=== PATIENT | male | born 1950 | race Caucasian/White ===

== ENCOUNTER 2016-12-28 16:36 | Emergency (ER) | payer MEDICARE ==
[~2016-12-28] VITALS: Ht 167.6 cm; Wt 72.2 kg
[2016-12-28 16:39] VITALS: Ht 167.6 cm; Wt 72.2 kg
--- NOTE | 2016-12-28 16:46 | NUR ---
PROVIDER DR LLAMAS TO BEDSIDE
--- NOTE | 2016-12-28 16:54 | ERPDOC ---
Departure Disposition Decision Date: December 28, 2016 Disposition Decision Time: 18:38 Disposition: 01 DISCHARGED HOME, SELF-CARE Impression Impression Impression: Primary Impression: Diverticulitis Severity: Moderate Condition: Stable Seen By: Physician only Referrals: STEVE GLASS MD (PCP) Patient Instructions: Diverticulitis (ED) Problems/Meds/Labs Reviewed?: Yes Medications reviewed and manag: Yes Additional Instructions: Flagyl 500 mg 3 times daily, Cipro 500 mg twice daily. Clear liquid for 2 days, then advance as tolerated. Please see your primary care provider next week. May use Percocet for pain. Follow up care ordered?: Yes Mental Status: Alert Scripts Oxycodone HCl/Acetaminophen (Percocet 5-325 mg Tablet) 5-325 Tablet 1 TAB PO QID for PAIN, #15 TAB Take 1 tablet, by mouth, 4 times a day. Prov: BERT LLAMAS MD 12/28/16 Ciprofloxacin HCl (Cipro) 500 Mg Tablet 500 MG PO Q12HR, #28 TAB Prov: BERT LLAMAS MD 12/28/16 Metronidazole (Metronidazole) 500 Mg Tablet 500 MG PO Q6HR, #60 TAB Prov: BERT LLAMAS MD 12/28/16 HPI - Abdominal Pain General Chief Complaint: Abdominal Pain Stated Complaint: RT LOWER ABD PAIN Time Seen by Provider: 16:51 HPI - Abdominal Pain Initial Comments 66-year-old gentleman presents with right lower quadrant abdominal pain. He does still has appendix. He's had no fevers or chills, did have normal bowel movement this morning. He has not eaten much last couple days because his pain is worse when he eats. He has not been a more gassy than usual. He has a very mild headache. Has not urinated today Allergies: Coded Allergies: No Known Allergies (Unverified , 12/28/16) Past History Patient Surgical History Hernia repair Past Medical History Pt denies signifigant PMH Surgical History Surgical History Comments Hernia repair Family History Family PMH: FOUND: hypertension Vaccines Hx Influenza Vaccination: No (REFUSED) Hx Pneumococcal Vaccination: No (REFUSED) Social History Smoking Status: Never smoker Substance Use Type: does not use Record Review Pertinent history updated: Yes Review of Systems GI Upper Abdomen: see HPI Lower Abdomen: see HPI Musculoskeletal General: see HPI Physical Exam General General Nourishment: well nourished, well developed, appears stated age Distress Description Patient is lying fairly still, does not want to move. General Body Habitus: well groomed Vitals and Pain First Documented Vital Signs Date Time Temp Pulse Resp B/P Pulse Ox O2 Delivery O2 Flow Rate FiO2 12/28/16 16:39 97.7 68 16 162/76 94 Room Air Weight: Kilograms: 72.200 Height (feet): 5 Height (inches): 6.00 Triage Pain Scale: Normal Exams: Head: Normocephalic w/o trauma Eyes: Pupils are PERRLA w/ EOMI, No scleral icterus, irritation, or foreign bodies noted Chest/Resp: Clear all hall, with good airflow, and symmetry bilaterally CV: Regular rate and rhythm, without murmur or gallop, Pulses 2+ all extremities, capillary refill, <2 seconds all ext., no pedal edema noted Neurologic: Patient is alert, and oriented, cranial nerves, motor/sensory/ cerebellar, exams w/o gross deficits, to observation Psychiatric: Patient exhibits, appropriate attention, emotion and affect Abdomen (brief) Comments Tender to palpation right upper quadrant, and not right lower quadrant as he initially thought. Pain does increase over McBurney's point. No abdominal masses palpable, bowel sounds are hyperactive. Differential Diagnoses Considering: Appendicitis, Biliary Colic, Constipation, Diverticulitis, IBS, Ileus, Neoplasm, Pneumonia, Pyelonephritis, Ulcer, Ulcerative Colitis Progress Results/Orders Orders Procedure Category Date Status Time Iv Lock (Ed Only) EDM 12/28/16 Transmitted 16:56 Nothing By Mouth (Ed EDM 12/28/16 Transmitted Only) 16:56 Cbc W/Auto LAB 12/28/16 Complete Diff-Reflex Manual 16:56 Cmp - Comprehensive LAB 12/28/16 Complete Metabolic 16:56 Lipase LAB 12/28/16 Complete 16:56 Ua, Dip Wreflex LAB 12/28/16 Logged [employer] Installer 16:56 Normal Saline (Normal PHA 12/28/16 Complete Saline Iv) 16:56 Ct Abd/Pelvis CT 12/28/16 Logged W/Contrast Only 16:56 Iohexol (Omnipaque) PHA 12/28/16 Complete 17:41 Normal Saline (Ns) PHA 12/28/16 Complete 17:41 Saline Flush (Iv PHA 12/28/16 Complete Flush) 17:41 Lab Results Laboratory Tests Test 12/28/16 17:16 White Blood Count 8.8T/MM3 Red Blood Count 5.73M/MM3 Hemoglobin 16.1GM/DL Hematocrit 47.2% Mean Corpuscular Volume 82.4UM3 Mean Corpuscular Hemoglobin 28.1UUG Mean Corpuscular Hemoglobin Concent 34.1GM/DL RDW Standard Deviation 39.6FL Platelet Count 162T/MM3 Mean Platelet Volume 9.2UM3 Immature Granulocyte % (Auto) 0.1% Neutrophils (%) (Auto) 69.4% Lymphocytes (%) (Auto) 21.3% Monocytes (%) (Auto) 7.1% Eosinophils (%) (Auto) 2.0% Basophils (%) (Auto) 0.1% Absolute Immature Granulocyte (auto 0.01T/MM3 Absolute Neutrophils (auto) 6.1T/MM3 Absolute Lymphocytes (auto) 1.9T/MM3 Absolute Monocytes (auto) 0.6T/MM3 Absolute Eosinophils (auto) 0.2T/MM3 Absolute Basophils (auto) 0.0T/MM3 Turbidity < 20 Sodium Level 145MEQ/L Potassium Level 4.1MEQ/L Chloride Level 104MEQ/L Carbon Dioxide Level 27MEQ/L Anion Gap 14MEQ/L Blood Urea Nitrogen 18.0MG/DL Creatinine 1.0MG/DL Glomerular Filtration Rate Calc 75 BUN/Creatinine Ratio 18RATIO Glucose Level 95MG/DL Calculated Osmolality 281MOSM/KG Calcium Level 9.4MG/DL Total Bilirubin 0.60MG/DL Icterus Index < 2 Aspartate Amino Transf (AST/SGOT) 26U/L Alanine Aminotransferase (ALT/SGPT) 56U/L Alkaline Phosphatase 84U/L Total Protein 7.4G/DL Albumin 4.2G/DL Globulin 3.2G/DL Albumin/Globulin Ratio 1.3RATIO Lipase 32U/L Chemistry Specimen Hemolysis < 15 Medications Current ED Medications Sodium Chloride (Normal Saline IV) 1,000 ml @ 1,000 mls/hr Q1H ONCE IV Last administered on 12/28/16t 17:14; Start 12/28/16 at 16:56; Stop 12/28/16 at 17:55; Status DC Iohexol 1 bottle 1 bottle Lenda-MED ONCE .ROUTE ; Start 12/28/16 at 17:41; Stop 12/28/16 at 17:42; Status DC Sodium Chloride (NS) 100 ml @ As Directed STK-MED ONCE .ROUTE ; Start 12/28/16 at 17:41; Stop 12/28/16 at 17:42; Status DC Sodium Chloride (Iv Flush) 10 ml STK-MED ONCE .ROUTE ; Start 12/28/16 at 17:41; Stop 12/28/16 at 17:42; Status DC Progress Progress Patient has normal white count, no significant shift, appropriate CMP. CT scan of abdomen shows infected diverticulum and cecum. This certainly accounts for the location and severity of pain. He has no allergies to antibiotics, will start him on Flagyl and Cipro. Recommended he follow up with his primary care provider next week if he is stable or with his surgeon if symptoms are worsening. Recommend clear liquids for the next day or 2 and then very gently advancing diet as tolerated. The patient prescription for Percocet as needed for pain. BERT LLAMAS MD December 28, 2016 16:54
[2016-12-28] MEDS ORDERED: NORMAL SALINE 1,000 ML IV ONE (16:56)
--- OUTSIDE RECORDS SUMMARY | 2016-12-28 16:56 | XMS REPORT | Referral Summary ---
Author Author [facility] Organization [facility] Address Unknown Phone Unavailable Care Team Providers Care Customer Advocate Name Role Phone Susan Hyman Primary Care Physician [phone] Encounter [facility] [id number] Date(s): 04/05/15 - 04/05/15 [facility] [address] [place] [id number] Discharge Diagnosis: Family history of prostate cancer in father Discharge Diagnosis: MVP (mitral valve prolapse) Discharge Diagnosis: Borderline hyperlipidemia Discharge Disposition: 01-Home or Self Care Attending Physician: Mychal Hyman MD Admitting Physician: Mychal Hyman MD Vital Signs Most recent to 1 oldest [Reference Range]: Blood Pressure 128/62 mmHg [90-140/60-90 mmHg] (04/05/15 2:08 PM) Problem List Condition Effective Dates Status Health Status Informant Family history of Active prostate cancer in father(Confirmed) MVP (mitral valve Active prolapse)(Confirmed) Allergies, Adverse Reactions, Alerts No Known Medication Allergies Medications PriLOSEC 20 mg oral delayed release capsule 20 mg 1 caps, Oral, Daily, # 90 caps, 0 Refill(s), Pharmacy: [facility] # [id number], 1 caps Oral Daily Start Date: 08/19/15 Status: Ordered Results No data available for this section Immunizations No data available for this section Procedures Procedure Date Related Diagnosis Body Site Inguinal hernia Social History Social History Type Response Smoking Status Never smoker; Tobacco use per day: More than 1 pack Assessment and Plan Extracted from: Title: Ambulatory Patient Education Author: Mychal Hyman MD Date: 06/10 Family Medicine Mitral Valve Prolapse in Sports The mitral valve is a valve in the heart that prevents blood from going the wrong direction, allowing the heart to work efficiently. Sometimes, the mitral valve fails to do its job, and a small amount of blood leaks through the valve when it is closed. This condition is known as a mitral valve prolapse. A mitral valve prolapse can be heard and diagnosed by a physician with the use of a stethoscope. It is generally thought to be a harmless condition, unless associated with fainting (syncope), a family history of sudden , or abnormal heart rhythms. SYMPTOMS Generally, no symptoms. Fainting (syncope). Rapid or irregular heartbeat (palpitations). Fatigue. Anxiety. Stroke (cerebrovascular accident). Chest pain. Increased difficulty breathing (dyspnea). Abnormal heart rhythms (arrhythmias). Sudden . CAUSES Most cases of mitral valve prolapse have no known cause. The condition is associated with diseases of connective tissue, such as Marfan syndrome. RISK INCREASES WITH: Hypertrophic cardiomyopathy (enlarged heart). Connective tissue diseases, such as Marfan syndrome or Santa-Danlos syndrome. Rheumatic fever. PREVENTION Some individuals with a mitral valve prolapse need to take antibiotics before having dental work or other surgical procedures. This is called prophylactic antibiotic treatment. These drugs help to prevent infective endocarditis. Antibiotics are only recommended for individuals with the highest risk for developing infective endocarditis. Let your dentist and your caregiver know if you have a history of any of the following so that the necessary precautions can be taken: A VSD. A repaired VSD. Endocarditis in the past. An artificial (prosthetic) heart valve. When associated with fainting, athletes are often asked to reduce training. When associated with Marfan syndrome, athletes are screened for progression of the condition. PROGNOSIS Mitral valve prolapse often has no negative consequences, and does not need to be treated. RELATED COMPLICATIONS Since mitral valve prolapse is considered a harmless condition, the risk of complications is low. However, mitral valve prolapse may be related to the following: Sudden . Infection of the heart lining (bacterial endocarditis). Abnormal heart rhythms (arrhythmias). Blood clots formed in the heart, which can travel to other organs (emboli). Stroke. TREATMENT Most cases of mitral valve prolapse are left untreated. If the leak in the valve begins to cause symptoms, surgery must be performed to replace the valve. You may want to discuss changes in activity levels with your caregiver. MEDICATION No medicines exist to treat mitral valve prolapse. ACTIVITY No activity restrictions are required, unless symptoms prevent participation. DIET No dietary changes are required to treat this condition. SEEK MEDICAL CARE IF: There is a change in exercise tolerance. There is a family history of sudden before age 50, related to mitral valve prolapse. You have an abnormal heart rhythm (arrhythmia). You have an episode of fainting (syncope). Document Released: 06/20/2006 Document Revised: 11/04/2012 Document Reviewed: [employer] Patient Information 2015 [employer]. This information is not intended to replace advice given to you by your health care provider. Make sure you discuss any questions you have with your health care provider. No follow up information was provided. Extracted from: Title: Office Visit Note Author: Mychal Hyman MD Date: 04/05/15 Assessment/Plan Borderline hyperlipidemia Will get lab and decide if we will need to start a statin. Ordered: Office Visit Level 4 Est 58189 Family history of prostate cancer in father Ordered: Office Visit Level 4 Est 19470 PSA Ultrasensitive-[place] MVP (mitral valve prolapse) Ordered: Comprehensive Metabolic Panel Lipid Panel Office Visit Level 4 Est 72853
--- OUTSIDE RECORDS SUMMARY | 2016-12-28 16:56 | XMS REPORT | Continuity of Care Document ---
Author Author [facility] Organization [facility] Address Unknown Phone Unavailable Allergies Active Description Code Type Severity Reaction Onset Reported/Identified Relationship to Patient Clinical Status Yes No Known Medication Allergies NKMA N/A N/A Medications Problems Procedures Results Encounters ACCT No. Visit Date/Time Discharge Status Pt. Type Provider Facility Loc./Unit Complaint [id number] 04/05/2015 13:53:00 2014 23:59:00 DIS Outpatient Mychal Hyman [facility] PHYSICAL
--- OUTSIDE RECORDS SUMMARY | 2016-12-28 17:09 | XMS REPORT | Continuity of Care Document ---
Author Author [facility] Organization [facility] Address Unknown Phone Unavailable Allergies Active Description Code Type Severity Reaction Onset Reported/Identified Relationship to Patient Clinical Status Yes No Known Medication Allergies NKMA N/A N/A Medications Problems Procedures Results Encounters ACCT No. Visit Date/Time Discharge Status Pt. Type Provider Facility Loc./Unit Complaint [id number] 04/05/2015 13:53:00 2014 23:59:00 DIS Outpatient Mychal Hyman [facility] PHYSICAL
[2016-12-28 17:23] LABS: BASOPHILS % (AUTO) 0.1 % (0-2); EOSINOPHILS # (AUTO) 0.2 T/MM3 (0-0.5); HCT - HEMATOCRIT 47.2 % (41-53); HGB - HEMOGLOBIN 16.1 GM/DL (13.5-17.5); IMMATURE GRANULOCYTE # (AUTO) 0.01 T/MM3 (0.00-0.03); IMMATURE GRANULOCYTE % (AUTO) 0.1 % (0.0-0.5); LYMPHOCYTES # (AUTO) 1.9 T/MM3 (1-4.8); LYMPHOCYTES % (AUTO) 21.3 % (23-45); MEAN CORPUSCULAR HGB 28.1 UUG (26-34); MEAN CORPUSCULAR HGB CONC(MCHC 34.1 GM/DL (31-37); MEAN CORPUSCULAR VOLUME 82.4 UM3 (80-100); MEAN PLATELET VOLUME 9.2 UM3 (9.4-12.4); MONOCYTES # (AUTO) 0.6 T/MM3 (0-0.8); MONOCYTES % (AUTO) 7.1 % (0-9.0); NEUTROPHILS #(AUTO)-ABSOLUTE 6.1 T/MM3 (1.8-7.7); NEUTROPHILS % (AUTO) 69.4 % (33-66); RED BLOOD COUNT 5.73 M/MM3 (4.50-5.90); WBC - WHITE BLOOD COUNT 8.8 T/MM3 (4.5-11.0)
[2016-12-28] MEDS ORDERED: OMEP-122 PO (17:24)
[2016-12-28 17:36] LABS: ALBUMIN 4.2 G/DL (3.5-5.0); ALBUMIN/GLOBULIN RATIO 1.3 RATIO (1.1-2.2); ALKALINE PHOSPHATASE 84 U/L (38-126); ALT (SGPT) 56 U/L (21-72); ANION GAP 14 MEQ/L (5-15); AST (SGOT) 26 U/L (17-59); BUN/CREATININE RATIO 18 RATIO (6-26); CALCIUM 9.4 MG/DL (8.4-10.2); CHLORIDE 104 MEQ/L (98-107); CO2 - CARBON DIOXIDE 27 MEQ/L (22-30); GLOMERULAR FILTRATION RATE 75; GLUCOSE 95 MG/DL (75-110); LIPASE 32 U/L (23-300); POTASSIUM 4.1 MEQ/L (3.6-5); SODIUM 145 MEQ/L (134-144); TOTAL PROTEIN 7.4 G/DL (6.3-8.2)
[2016-12-28] MEDS ORDERED: SALINE FLUSH 10ml SYRINGE ONE (17:41)
[2016-12-28] MEDS ORDERED: NORMAL SALINE 100 ML ONE (17:41)
[2016-12-28] MEDS ORDERED: IOHEXOL 300 MG/ML 100ml INJECTION ONE (17:41)
--- NOTE | 2016-12-28 17:44 | NUR ---
CT PATIENT TO RADIOLOGY PER CART, STABLE.
[2016-12-28] MEDS ORDERED: CIPR-212 PO (18:41)
[2016-12-28] MEDS ORDERED: METR-116 PO (18:41)
[2016-12-28] MEDS ORDERED: OXYC1TAB8 PO (18:41)
[2016-12-28 19:02] VITALS: BP 145/70; PULSE 62; RESP 20; TEMP 97.2; O2SAT 93
--- NOTE | 2016-12-28 19:02 | NUR ---
DISCHARGE PT GIVEN INSTRUCTIONS FOR CONT CARE OF DIVERTICULITIS W/ RX X3 FLAGYL.CIPRO, AND PERCOCET. PT VERBALIZED UNDERSTANDING OF CONTENT AND SIGNED FORM. PT LEFT ER AMBULATORY, ALERT, VS CHARTED, CONDITION IMPROVED PAIN 5/10, AND NO ACUTE DISTRESS.
--- NOTE | 2016-12-29 08:15 | DI ---
Indication: ITS.REASON: right upper quadrant abdominal pain PROCEDURE: CT ABD/PELVIS W/CONTRAST ONLY: Encounter: Initial Comparison: None Technique: Axial CT images were performed through the abdomen and pelvis after the administration of intravenous contrast. Coronal and sagittal two-dimensional reformats. Automated Exposure Control and Iterative Reconstruction dose reducing techniques were utilized. Contrast: Omnipaque 300 89 mL Findings: Mild atelectasis or scarring in the lower lobes. Small right pericardial cyst. The liver shows no focal lesion or mass. The gallbladder is within normal limits. The spleen, pancreas and adrenal glands are normal. The kidneys are normal. No abdominal or pelvic adenopathy. Bladder is normal. Prostate and rectum are unremarkable. There is a single diverticulum in the region of the cecum with slight adjacent mesenteric inflammation. Appendix is normal. No evidence of bowel obstruction. Bone windows are unremarkable for age. Small fat-containing left inguinal hernia. Impression: Mild cecal area of diverticulitis. No evidence of complication. There is a preliminary report by [employer]. .
== END 2016-12-28 19:02 | disposition home or self-care (01) ==
LOC: ED 16:36
DX: K57.32 Diverticulitis of large intestine without perforation or abscess without bleeding (principal)
CPT/HCPCS: 74177; 80053; 83690; 85025; 96360; 96361; 99284; J7030; J7050; Q9967